=== PATIENT | female | born 1970 | race Caucasian/White ===

== ENCOUNTER 2016-03-26 20:40 | Emergency (ER) | payer SELFPAY ==
[2016-03-26 20:40] VITALS: BMI 30.2
[2016-03-26 20:54] VITALS: TEMP 97.6
[2016-03-26] MEDS ORDERED: METOCLOPRAMIDE 10 MG/2 ML VIAL IM ONE (20:59)
[2016-03-26] MEDS ORDERED: DIPHENHYDRAMINE 50 MG/ML VIAL IM ONE (20:59)
[2016-03-26] MEDS ORDERED: KETOROLAC TROMETHAMINE 60 MG/2 ML SDV IM ONE (20:59)
--- NOTE | 2016-03-26 21:02 | EDPRACDOC ---
- General Information Stated Complaint: HEADACHE Time Seen by Provider: 03/26/16 20:54 Information Source: Patient Home Medications: Home Medications Citalopram (anti-depressant) [Celexa] 40 mg PO QHS 12/02/12 Trazodone HCl [Desyrel] 50 mg PO HS 12/02/12 Dextroamphetamine/Amphetamine [Adderall 30 mg Tablet] 15 mg PO BID 09/25/13 Hydrocodone Bit/Acetaminophen [Hydrocodon-Acetaminophen 5-325] 1 - 2 tab PO Q6H PRN #7 tab 11/25/15 Ibuprofen Tablet [Motrin] 800 mg PO TID #30 tab 11/25/15 Amoxicillin Trihydrate [Amoxicillin] 500 mg PO TID #21 tab 03/26/16 Ibuprofen 800 mg PO TID PRN #30 tablet 03/26/16 Promethazine [Phenergan] 25 mg PO Q4-6H PRN #15 tab 03/26/16 Allergies/Adverse Reactions: Allergies Allergy/AdvReac Type Severity Reaction Status Date / Time Sulfa (Sulfonamide Allergy Intermediate Nausea only Verified 11/25/15 21:46 Antibiotics) [Sulfa(Sulfonamide Antibiotics)] - History of Present Illness Onset: 2 days HPI: Pt c/o retroorbital headache, earache, sore throat, congestion, light sensitivity, nausea x 2 days. Hx migraines, feels similar to previous Location: Reports: Frontal, Retroorbital Pain Quality: Reports: Moderate, Throbbing, Like Previous Headaches Modifying Factors: improves with: Exposure to light Prior work up: Reports: CT Relevant History of: Reports: Known Headache disorder Associated Signs and Symptoms: Reports: Nausea/Vomiting, Nasal Congestion ED Past Medical History - History Reviewed Yes Nurses notes reviewed and agree except as marked - Patient Medical History Cardiac History: Reports: Hypertension GI/ History: Reports: Gastroesophageal Reflux Psychological History: Reports: Anxiety. Denies: Depression Surgical History: Reports: Cholecystectomy, Other (CATARACTS SURG) - Social Medical History Smoking Status: Heavy tobacco smoker (5 or more cigarettes/day or daily pipe/ cigar) ETOH: None Substance Abuse: None EDM Review of Systems - Review of Systems Constitutional: No Symptoms Reported. negative: Fever, Chills, Weakness, Fatigue, Loss of Appetite Eyes: Light Sensitive Ears: Pain Throat: Pain Nose: Congestion Mouth: No Symptoms Reported. negative: Pain, Drooling Respiratory: No Symptoms Reported. negative: Cough, Brassy Cough, Barky Cough, Shortness of Breath, Wheezing, Hemoptysis Cardiovascular: No Symptoms Reported. negative: Chest Pain, Palpitations, Syncope, Edema, Orthopnea, PND, Skin Mottling, Cyanosis Gastrointestinal: Nausea Genitourinary: No Symptoms Reported. negative: Dysuria, Hematuria, Frequency, Discharge, Bleeding, Testicular Pain, Neurological: Headache Musculoskeletal: No Symptoms Reported. negative: Neck, Chestwall, Ribs, Back, Shoulder, Arm, Elbow, Forearm, Wrist, Hand, Pelvis, Hip, Femur, Knee, Leg, Ankle , Foot Integumentary: No Symptoms Reported. negative: Itching, Rash, Bruising, Wound Allergic/Immunologic: No Symptoms Reported. negative: Hives, Itching Hematologic: No Symptoms Reported. negative: Lymphadenopathy, Easy Bruising, Easy Bleeding Psychiatric: No Symptoms Reported. negative: Anxiety, Depression, Hallucinations, Insomnia, Suicidal - Physical Exam Constitutional: Alert Oriented to: Time, Person, Place Last recorded Vital Signs: Last Vital Signs Temp 97.6 F 03/26/16 20:52 Pulse 85 03/26/16 20:52 Resp 18 03/26/16 20:52 BP 140/88 03/26/16 20:52 Pulse Ox 99 03/26/16 20:52 Oxygen Pulse Oxygen Saturation 99 O2 Device Room Air Oxygen Flow Rate Fraction of Inspired Oxygen ( FIO2) - HEENT Head: Normal ( normocephalic) Eye Exam: Normal (PERRL, EOMI, Sclera white) Oropharynx: Exudate, Red Tympanic Membrane: Bulging (R), Redness ENT EAC: Normal TMJ: Normal Nose: Congestion Neck: Normal (FROM, trachea at midline) - Respiratory/Cardiovascular Respiratory: Normal - CTA (BBS clear to auscultation without adventitious sounds ) Cardiovascular: Normal (RRR without murmur, gallop or rub) - GI Auscultation: Normal (NABS) Palpation: Normal (Soft,No rebound or guarding, non distended) Tenderness: Non tender - Musculoskeletal Back: Normal (Non-Tender) Extremities: Normal (Normal tone, Pulses 2+ No cyanosis or edema, FROM) - Integumentary Skin: Normal, Warm, Dry Lymphatics: Normal (no adenopathy) - Neurologic Memory Impaired: Normal Motor Function: Normal (Normal tone, Pulses 2+ No cyanosis or edema, FROM) Mood Description: Normal Perception: Normal - Differential Diagnosis Migraine, Fever-induced, Sinusitis, Acute Benign Cephalgia - Re-evaluation Re-evaluation 1 Re-evaluation Time: 21:40 (mild improvement) - Results 03/26/16 21:34 Microbiology 03/26/16 21:00 Throat - Rapid Strep Group A Streptococcus Rapid Screen - Final NEGATIVE ("NORMAL" value = "NEGATIVE".) Decision Time to Discharge: 21:40 - Departure Disposition: Home Condition: Good Final Diagnosis: Sinus headache Instructions: Sinusitis (ED), Migraine Headache (ED) Education/Counseling Given To: Patient Education/Counseling Given Regarding: Diagnosis, Treatment, Follow Up Referrals: Leonard Watson MD [Primary Care Provider] - One Week Prescriptions: Amoxicillin Trihydrate [Amoxicillin] 500 mg PO TID #21 tab Ibuprofen 800 mg PO TID PRN #30 tablet PRN Reason: Pain Promethazine [Phenergan] 25 mg PO Q4-6H PRN #15 tab PRN Reason: Nausea/Vomiting Additional Instructions: Return for worse or different symptoms.
[2016-03-26] MEDS ORDERED: HYDROCODONE 5 MG/ACETAMIN 325 MG TAB PO ONE (21:40)
[2016-03-26 21:52] VITALS: BP 136/78; PULSE 78
== END 2016-03-26 21:52 | disposition home or self-care (01) ==
LOC: EDMC 20:40
DX: R51 Headache (principal)
CPT/HCPCS: 87880; 96372; 99283; J1200; J1885; J2765; J3490